=== PATIENT | female | born 1945 | race Caucasian/White ===

== ENCOUNTER → 2016-04-01 | Outpatient (CLI) | payer OTHER ==
--- NOTE | 2016-04-01 17:10 | MA ---
Specimen radiograph 04/01/2016 INDICATION: Left breast ductal carcinoma in situ. Lumpectomy. TECHNIQUE: Single specimen radiograph. COMPARISON: Tomosynthesis mammograms dated October 2015. FINDINGS: The specimen includes the biopsy clip, hookwire and needle and subtle asymmetry with puncta te microcalcification. IMPRESSION: Good specimen radiograph. Comment: Results were discussed with Dr. Alcon Nielsen at time of study completion. PLAN: Clinical follow up with Dr. Nielsen.
--- NOTE | 2016-04-01 20:09 | US ---
Left breast ultrasound-guided hookwire needle localization INDICATION: 70-year-old woman with history of left breast ductal carcinoma in situ. Patient scheduled for lumpectomy. Consent: The procedure, risks and benefits were discussed with the patient. She agreed to proceed. Al malu questions were addressed. PQRS Crosscutting Measure #226: Current tobacco use: No. COMPARISON: MRI dated February 2016 and outside reports from [facility] dated 03/04/2016. Technique: Preliminary ultrasound of the outer left breast reveals a subtle residual 4 mm stellate hy poechoic lesion at the 4 o'clock position 2 cm from the nipple. Subtle echogenic focus corresponding to the clip is present along the lateral margin of the lesion. A lateral to medial approach was selec teena, the skin was cleansed with chlorhexidine and sterilely draped. The skin and deep soft tissues we re anesthestized with 1% lidocaine. Utilizing real time ultrasound visualization, a 5 cm Brown need le was advanced along the margin of the clip and through the center of the lesion. The hookwire was u ltimately positioned such that the tip extending 5 mm beyond the lesion. The hookwire was deployed an d fixed in position with the plastic fixer device. Dressing was placed over the area by the mammograp hers. Patient tolerated the procedure well. IMPRESSION: Successful ultrasound-guided hookwire localization of residual lesion 4 o'clock position left breast. PLAN: Proceed with lumpectomy.
== END ==
LOC: FIMAGING 07:22
PROVIDERS: ATTEND Surgery
DX: D05.12 Intraductal carcinoma in situ of left breast (principal)

== ENCOUNTER 2016-08-12 01:18 | Inpatient (IN) | payer OTHER ==
[2016-08-12] MEDS ORDERED: NS 1,000 ML IV ONE (01:44)
[2016-08-12 01:51] LABS: % IMMATURE GRANULYOCYTES 0.2 % (0.0-1.1); ABSOLUTE IMMATURE GRANULOCYTES 0.02 10^3/uL (0.00-0.10); ADD DIFF? NO; ADD MORPH? NO; ADD SCAN? NO; ATYPICAL LYMPHOCYTE FLAG 0 (0-99); FRAGMENT RBC FLAG 0 (0-99); HEMATOCRIT 41.6 % (38.0-47.0); HEMOGLOBIN 14.3 g/dL (12.6-16.3); LEFT SHIFT FLG 0 (0-99); LIPEMIA HEMOLYSIS FLAG 90 (0-99); MEAN CELL HEMOGLOBIN CONCENTR. 34.4 g/dL (32.4-36.7); MEAN CELL VOLUME 90.2 fL (81.5-99.8); PLATELET CLUMPS FLAG 0 (0-99); PLATELET COUNT 324 10^3/uL (150-400); RED BLOOD CELL COUNT 4.61 10^6/uL (4.18-5.33); RED CELL DISTRIBUTION WIDTH 11.6 % (11.5-15.2)
[2016-08-12 01:58] LABS: ALANINE AMINOTRANSFERASE 37 IU/L (9-52); ALBUMIN 4.4 g/dL (3.5-5.0); ALKALINE PHOSPHATASE 54 IU/L (38-126); ANION GAP 8 mEq/L (8-16); ASPARTATE AMINOTRANSFERASE 25 IU/L (14-46); BILIRUBIN,TOTAL 1.3 mg/dL (0.1-1.4); BILIRUBIN-CONJUGATED 0.3 mg/dL (0.0-0.5); CALCIUM 8.9 mg/dL (8.5-10.4); CARBON DIOXIDE 25 mEq/l (22-31); CHLORIDE 103 mEq/L (97-110); CREATININE 0.7 mg/dL (0.6-1.0); GLOMERULAR FILTRATION RATE > 60; GLUCOSE 98 mg/dL (70-100); POTASSIUM 4.2 mEq/L (3.5-5.2); SODIUM 136 mEq/L (134-144); TOTAL PROTEIN 6.7 g/dL (6.3-8.2)
[2016-08-12] MEDS ORDERED: IOPAMIDOL (ISOVUE-300) 100 ML BTL ONE (02:07)
--- NOTE | 2016-08-12 02:09 | EDPHY ---
H & P Time Seen by Provider: 08/12/16 01:43 HPI/ROS: HPI Abdominal pain. 70-year-old female by private vehicle. She reports that she developed periumbilical area, mid abdominal pain which started earlier this morning. She reports that she walked to the 10 K run was today in town. She reports that she still had the pain during this time. She reports that after that she ate some glaucoma only in chips. She reports going to bed tonight however she still felt this pain and it seemed worse. She describes it as an aching and cramping sensation in the mid abdomen. She reports that she had a small bowel movement during the race. She has not had any vomiting. No bloody or melenic stool. No other complaints. ROS: Constitutional: No fever, no chills. No weakness. Eyes: No discharge. No changes in vision. ENT: No sore throat. No nasal congestion or rhinorrhea. Respiratory: No cough. No shortness of breath. Cardiac: No chest pain, no palpitations. Gastrointestinal: As above, no vomiting, no diarrhea. Genitourinary: No hematuria. No dysuria or increased frequency with urination. Musculoskeletal: No back pain. No neck pain. No myalgias or arthralgias. Skin: No rashes. Neurological: No headache. No focal weakness or altered sensation. Past medical history: Hysterectomy, breast cancer, chronic lower back pain, hypertension. Social history: Here by herself. No alcohol. Nonsmoker. Physical Exam: General Appearance: Alert, no distress. This patient is responding to questions appropriately and in full sentences. This patient appears well- hydrated and well-nourished. Eyes: Pupils equal and round no pallor or injection. No lid edema, erythema or injection. Respiratory: There are no retractions, lungs are clear to auscultation with good air movement bilaterally. Cardiovascular: Regular rate and rhythm. No murmur. Gastrointestinal: Abdomen is soft vague and mild mid abdominal tenderness on palpation, no masses, bowel sounds normal. No focal tenderness at McBurney's point. No Rawls sign. Neurological: Motor sensory function is grossly intact. Cranial nerves are normal. Gait is normal. Skin: Warm and dry, no rashes. Musculoskeletal: Neck is supple and nontender. Extremities are symmetrical. All joints range without pain or impingement. Psychiatric: No agitation. No depression. Database: EKG: Imaging: CT scan of the abdomen and pelvis with IV contrast: Significant for a cecal volvulus. Results were discussed with staff radiologist Dr. Alcon Garcia. Upright abdominal x-ray series: Some constipation noted. No obstructive process. No free air. Interpreted by me. Procedures: Emergency department course: An IV was placed. She was sent for an upright abdominal series x-ray to evaluate for possible constipation. Appropriate blood work sent. Pain medication was held secondary to possible etiology of constipation. She understood this and was in agreement. 2:10 a.m., patient re-evaluated. She appears reasonably comfortable but she is still complaining of mid abdominal pain. I discussed the results of her blood work as well as abdominal x-ray. She does not feel comfortable at this time. We will obtain a CT of her abdomen and pelvis with contrast to further evaluate. 2:50 a.m., results of CT scan discussed with the patient. She was given 25 mcg of IV fentanyl. I explained we would have general surgery consult regarding management of her volvulus. 3:00 a.m., discussed case with on-call general surgeon Dr. Babcock. He will review her CT scans and see this patient shortly. 2:55 a.m., Dr. Babcock is at the bedside. His plan is to admit the patient for operative management of a cecal volvulus. Patient given 1 g of IV Invanz in the emergency department. Patient admitted to Dr. Babcock in stable condition. Differential Diagnosis: The differential diagnosis on this patient includes but is not limited to constipation. Volvulus, cholecystitis, pancreatitis, appendicitis, other surgical etiology unlikely. This represents a partial list of diagnoses considered. These considerations are based on history, physical exam, past history, reassessment and diagnostic testing. Smoking Status: Never smoked Constitutional: Initial Vital Signs Temperature (C) 36.9 C 08/12/16 01:22 Heart Rate 78 08/12/16 01:22 Respiratory Rate 16 08/12/16 01:22 Blood Pressure 164/89 H 08/12/16 01:22 O2 Sat (%) 96 08/12/16 01:22 O2 Delivery Mode Room Air Allergies/Adverse Reactions: No Known Allergies Allergy (Unverified 08/12/16 01:27) Home Medications: Medication Instructions Recorded Anastrozole 08/12/16 CALCIUM 08/12/16 Coq-10 08/12/16 Fosamax 08/12/16 LaMICtal 08/12/16 Lexapro 08/12/16 Lisinopril 08/12/16 Melatonin 08/12/16 [place] 3 08/12/16 Probiotic 08/12/16 SIMVASTATIN 08/12/16 Saccharomyces Boulardii 08/12/16 Temazepam 08/12/16 Vitamin D3 08/12/16 Wellbutrin 08/12/16 Xanax 08/12/16 Medical Decision Making - Data Points Laboratory Results: Laboratory Results 08/12/16 01:40 08/12/16 01:40 08/12/16 08/12/16 01:40 01:40 WBC 10.94 10^3/uL H 10^3/uL (3.80-9.50) RBC 4.61 10^6/uL 10^6/uL (4.18-5.33) Hgb 14.3 g/dL g/dL (12.6-16.3) Hct 41.6 % % (38.0-47.0) MCV 90.2 fL fL (81.5-99.8) MCH 31.0 pg pg (27.9-34.1) MCHC 34.4 g/dL g/dL (32.4-36.7) RDW 11.6 % % (11.5-15.2) Plt Count 324 10^3/uL 10^3/uL (150-400) MPV 10.0 fL fL (8.7-11.7) Neut % (Auto) 66.2 % % (39.3-74.2) Lymph % (Auto) 26.8 % % (15.0-45.0) [place] % (Auto) 6.2 % % (4.5-13.0) Eos % (Auto) 0.3 % L % (0.6-7.6) Baso % (Auto) 0.3 % % (0.3-1.7) Nucleat RBC Rel Count 0.0 % % (0.0-0.2) Absolute Neuts (auto) 7.25 10^3/uL H 10^3/uL (1.70-6.50) Absolute Lymphs (auto) 2.93 10^3/uL 10^3/uL (1.00-3.00) Absolute Monos (auto) 0.68 10^3/uL 10^3/uL (0.30-0.80) Absolute Eos (auto) 0.03 10^3/uL 10^3/uL (0.03-0.40) Absolute Basos (auto) 0.03 10^3/uL 10^3/uL (0.02-0.10) Absolute Nucleated RBC 0.00 10^3/uL 10^3/uL (0-0.01) Immature Gran % 0.2 % % (0.0-1.1) Immature Gran # 0.02 10^3/uL 10^3/uL (0.00-0.10) Sodium 136 mEq/L mEq/L (134-144) Potassium 4.2 mEq/L mEq/L (3.5-5.2) Chloride 103 mEq/L mEq/L (97-110) Carbon Dioxide 25 mEq/l mEq/l (22-31) Anion Gap 8 mEq/L mEq/L (8-16) BUN 12 mg/dL mg/dL (7-23) Creatinine 0.7 mg/dL mg/dL (0.6-1.0) Estimated GFR > 60 Glucose 98 mg/dL mg/dL (70-100) Calcium 8.9 mg/dL mg/dL (8.5-10.4) Total Bilirubin 1.3 mg/dL mg/dL (0.1-1.4) Conjugated Bilirubin 0.3 mg/dL mg/dL (0.0-0.5) Unconjugated Bilirubin 1.0 mg/dL mg/dL (0.0-1.1) AST 25 IU/L IU/L (14-46) ALT 37 IU/L IU/L (9-52) Alkaline Phosphatase 54 IU/L IU/L (38-126) Total Protein 6.7 g/dL g/dL (6.3-8.2) Albumin 4.4 g/dL g/dL (3.5-5.0) Lipase 61.0 IU/L IU/L (23-300) Medications Given: Discontinued Medications Fentanyl (Sublimaze) 25 mcg IVP EDNOW ONE Stop: 08/12/16 03:19 Last Admin: 08/12/16 03:38 Dose: 25 mcg Sodium Chloride (Ns) 1,000 mls @ 0 mls/hr IV ONCE ONE PRN Reason: Wide Open Stop: 08/12/16 01:45 Last Admin: 08/12/16 01:47 Dose: 1,000 mls Departure - Departure Disposition: [facility] Inpatient Acute Clinical Impression: Abdominal pain, Cecal volvulus Referrals: Bonnie Amaya MD [Primary Care Provider] - As per Instructions
[2016-08-12] MEDS ORDERED: fentaNYL 100 MCG/2 ML INJ ONE ×2 (02:53→05:22)
[2016-08-12] MEDS ORDERED: ACETAMINOPHEN 500 MG TAB ONE (03:02)
[2016-08-12] MEDS ORDERED: fentaNYL 100 MCG/2 ML INJ IVP ONE ×2 (03:18→04:10)
[2016-08-12] MEDS ORDERED: ERTAPENEM 1 GM in NS 100 ML IV ONE (03:55)
--- NOTE | 2016-08-12 04:48 | PDGENHP ---
History and Physical - Chief Complaint Abdominal pain - History of Present Illness Mariola Ledesma this 70 yo woman who presents to the emergency room with a 24 hour history of increasing abdominal pain. The patient began having abdominal pain while walking 10K after [place] yesterday. Although she was able to have a bowel movement her pain continued to increase to abort where she was uncomfortable enough to come into the emergency room. She denies nausea or vomiting she has had no prior symptoms. Previous abdominal surgery includes vaginal hysterectomy. She has had a high school librarian for a history of diverticular disease who resides in [place], [place]. Past Surgical history includes lumpectomy, vaginal hysterectomy Past Medical history includes reflux, diverticulosis, hypertension, hyperlipidemia, breast cancer Family history: Noncontributory Anastrozole 08/12/16 [Last Taken Unknown] CALCIUM 08/12/16 [Last Taken Unknown] Coq-10 08/12/16 [Last Taken Unknown] Fosamax 08/12/16 [Last Taken Unknown] LaMICtal 08/12/16 [Last Taken Unknown] Lexapro 08/12/16 [Last Taken Unknown] Lisinopril 08/12/16 [Last Taken Unknown] Melatonin 08/12/16 [Last Taken Unknown] [place] 3 08/12/16 [Last Taken Unknown] Probiotic 08/12/16 [Last Taken Unknown] SIMVASTATIN 08/12/16 [Last Taken Unknown] Saccharomyces Boulardii 08/12/16 [Last Taken Unknown] Temazepam 08/12/16 [Last Taken Unknown] Vitamin D3 08/12/16 [Last Taken Unknown] Wellbutrin 08/12/16 [Last Taken Unknown] Xanax 08/12/16 [Last Taken Unknown] No known medical allergies Denies smoking or illicit drug use Review of systems significant for her abdominal pain, early satiety and reflux All others are reviewed and are negative Vital Signs Temp Pulse Resp BP Pulse Ox 36.8 C 75 16 151/87 H 96 08/12/16 03:17 08/12/16 03:17 08/12/16 03:17 08/12/16 03:17 08/12/16 03:17 Alert oriented x3 No acute distress Anicteric sclera,EOMI Trachea midline did no JVD full range of motion of neck Regular rate and rhythm Clear to auscultation Abdomen is soft distended tender left upper quadrant no rebound no scars Extremities without edema 2+ over 2+ femoral dorsalis pedis pulses Skin normal turgor and tone No cervical or supraclavicular adenopathy Normal affect nonfocal neurologic exam Laboratory Results 08/12/16 01:40 08/12/16 01:40 CT scan personally reviewed on Pacs and with the patient. Consistent with cecal volvulus with cecum measuring 11 cm in the left upper quadrant just below the diaphragm Impression: Cecal volvulus acute Plan: Open right colon resection. The risks benefits and alternatives surgery were clearly outlined with the patient. The risks include but are not limited to bleeding, infection, injury to surrounding structures in requirement for additional intervention. Benefits include prevention of perforation obstruction and possible mortality from these complications Patient verbalized understanding prior to deciding written consent. Invanz was ordered as a prophylactic antibiotic prior to colectomy Anticipate 40-72 hour postoperative stay. History Information - Allergies/Home Medication List Allergies/Adverse Reactions: No Known Allergies Allergy (Unverified 08/12/16 01:27) Home Medications: Anastrozole 08/12/16 [Last Taken Unknown] CALCIUM 08/12/16 [Last Taken Unknown] Coq-10 08/12/16 [Last Taken Unknown] Fosamax 08/12/16 [Last Taken Unknown] LaMICtal 08/12/16 [Last Taken Unknown] Lexapro 08/12/16 [Last Taken Unknown] Lisinopril 08/12/16 [Last Taken Unknown] Melatonin 08/12/16 [Last Taken Unknown] [place] 3 08/12/16 [Last Taken Unknown] Probiotic 08/12/16 [Last Taken Unknown] SIMVASTATIN 08/12/16 [Last Taken Unknown] Saccharomyces Boulardii 08/12/16 [Last Taken Unknown] Temazepam 08/12/16 [Last Taken Unknown] Vitamin D3 08/12/16 [Last Taken Unknown] Wellbutrin 08/12/16 [Last Taken Unknown] Xanax 08/12/16 [Last Taken Unknown] I have personally reviewed and updated: family history - Past Medical History chronic insomnia, GERD, hypertension, hyperlipidemia Additional medical history: breast cancer - Surgical History Reports: cancer surgery - Social History Smoking Status: Never smoked Physical Exam Temp Pulse Resp BP Pulse Ox 36.8 C 75 16 151/87 H 96 08/12/16 03:17 08/12/16 03:17 08/12/16 03:17 08/12/16 03:17 08/12/16 03:17 Lab Data & Imaging Review 08/12/16 01:40 08/12/16 01:40 WBC 10.94 10^3/uL (3.80-9.50) H 08/12/16 01:40 RBC 4.61 10^6/uL (4.18-5.33) 08/12/16 01:40 Hgb 14.3 g/dL (12.6-16.3) 08/12/16 01:40 Hct 41.6 % (38.0-47.0) 08/12/16 01:40 MCV 90.2 fL (81.5-99.8) 08/12/16 01:40 MCH 31.0 pg (27.9-34.1) 08/12/16 01:40 MCHC 34.4 g/dL (32.4-36.7) 08/12/16 01:40 RDW 11.6 % (11.5-15.2) 08/12/16 01:40 Plt Count 324 10^3/uL (150-400) 08/12/16 01:40 MPV 10.0 fL (8.7-11.7) 08/12/16 01:40 Neut % (Auto) 66.2 % (39.3-74.2) 08/12/16 01:40 Lymph % (Auto) 26.8 % (15.0-45.0) 08/12/16 01:40 [place] % (Auto) 6.2 % (4.5-13.0) 08/12/16 01:40 Eos % (Auto) 0.3 % (0.6-7.6) L 08/12/16 01:40 Baso % (Auto) 0.3 % (0.3-1.7) 08/12/16 01:40 Nucleat RBC Rel Count 0.0 % (0.0-0.2) 08/12/16 01:40 Absolute Neuts (auto) 7.25 10^3/uL (1.70-6.50) H 08/12/16 01:40 Absolute Lymphs (auto) 2.93 10^3/uL (1.00-3.00) 08/12/16 01:40 Absolute Monos (auto) 0.68 10^3/uL (0.30-0.80) 08/12/16 01:40 Absolute Eos (auto) 0.03 10^3/uL (0.03-0.40) 08/12/16 01:40 Absolute Basos (auto) 0.03 10^3/uL (0.02-0.10) 08/12/16 01:40 Absolute Nucleated RBC 0.00 10^3/uL (0-0.01) 08/12/16 01:40 Immature Gran % 0.2 % (0.0-1.1) 08/12/16 01:40 Immature Gran # 0.02 10^3/uL (0.00-0.10) 08/12/16 01:40 Sodium 136 mEq/L (134-144) 08/12/16 01:40 Potassium 4.2 mEq/L (3.5-5.2) 08/12/16 01:40 Chloride 103 mEq/L (97-110) 08/12/16 01:40 Carbon Dioxide 25 mEq/l (22-31) 08/12/16 01:40 Anion Gap 8 mEq/L (8-16) 08/12/16 01:40 BUN 12 mg/dL (7-23) 08/12/16 01:40 Creatinine 0.7 mg/dL (0.6-1.0) 08/12/16 01:40 Estimated GFR > 60 08/12/16 01:40 Glucose 98 mg/dL (70-100) 08/12/16 01:40 Calcium 8.9 mg/dL (8.5-10.4) 08/12/16 01:40 Total Bilirubin 1.3 mg/dL (0.1-1.4) 08/12/16 01:40 Conjugated Bilirubin 0.3 mg/dL (0.0-0.5) 08/12/16 01:40 Unconjugated Bilirubin 1.0 mg/dL (0.0-1.1) 08/12/16 01:40 AST 25 IU/L (14-46) 08/12/16 01:40 ALT 37 IU/L (9-52) 08/12/16 01:40 Alkaline Phosphatase 54 IU/L (38-126) 08/12/16 01:40 Total Protein 6.7 g/dL (6.3-8.2) 08/12/16 01:40 Albumin 4.4 g/dL (3.5-5.0) 08/12/16 01:40 Lipase 61.0 IU/L (23-300) 08/12/16 01:40 Assessment & Plan Assessment: Abdominal pain (Acute) Cecal volvulus (Acute)
[2016-08-12] MEDS ORDERED: MIDAZOLAM 2 MG/2 ML VIAL ONE (05:08)
[2016-08-12] MEDS ORDERED: PROPOFOL/EMULSION 500 MG/50 ML BOTTLE IV ONE (05:22)
[2016-08-12] MEDS ORDERED: LIDOCAINE 2% 100 MG/5 ML SYR ONE (05:31)
[2016-08-12] MEDS ORDERED: ROCURONIUM 50 MG/5 ML VIAL ONE (05:31)
[2016-08-12] MEDS ORDERED: ONDANSETRON 4 MG/2 ML VIAL ONE (05:31)
[2016-08-12] MEDS ORDERED: DEXAMETHASONE 4 MG/ML VIAL ONE (05:31)
[2016-08-12] MEDS ORDERED: PHENYLEPHRINE HCL 100 MCG/ML SYR ONE (05:42)
[2016-08-12] MEDS ORDERED: BUPIVACAINE/EPI 0.25% 30 ML SDV ONE (05:46)
[2016-08-12] MEDS ORDERED: morphINE PF 5 MG/10 ML INJ ONE (05:47)
[2016-08-12] MEDS ORDERED: BUPIVACAINE 0.5% 30 ML SDV ONE (05:55)
[2016-08-12] MEDS ORDERED: LIDOCAINE HCL 160 MG/4 ML LTA KIT TP ONE (06:09)
[2016-08-12] MEDS ORDERED: METOCLOPRAMIDE 10 MG/2 ML VIAL IVP PRN (06:11)
[2016-08-12] MEDS ORDERED: NALOXONE HCL 0.4 MG/ML INJ IVP PRN (06:11)
[2016-08-12] MEDS ORDERED: HYDROmorph 10MCG/ML&BUP 0.0625% in 100ML NS EP SCH (06:11)
[2016-08-12] MEDS ORDERED: diphenhydrAMINE 25 MG CAP PO PRN (06:11)
[2016-08-12] MEDS ORDERED: ONDANSETRON 4 MG/2 ML VIAL IVP PRN (06:11)
[2016-08-12] MEDS ORDERED: NARCOTIC DRIP BAG-TOTAL ALL TYPES EP PRN (06:11)
[2016-08-12] MEDS ORDERED: epHEDrine SULFATE 10 MG/ML SYR ONE ×2 (06:13)
[2016-08-12] MEDS ORDERED: SUGAMMADEX SODIUM 200 MG/2 ML VIAL IVP ONE (06:28)
--- NOTE | 2016-08-12 06:45 | POSTOPPROG ---
Post Op Note Date of Operation: 08/12/16 Surgeon: Abad Babcock Anesthesiologist: Dr Johnson Anesthesia: GET(General Endotracheal) Pre-op Diagnosis: cecal volvulus Post-op Diagnosis: same Procedure: right colectomy Findings: malrotation/volvulus Inf/Abcess present in the surg proc area at time of surgery?: No EBL: Minimal Total fluids administered: 1L Complications: none Specimen(s): right colon
--- NOTE | 2016-08-12 09:17 | GOP ---
[f rep st] OPERATIVE REPORT DATE OF OPERATION: SURGEON: Abad Babcock MD CLINICAL DOCUMENTATION IMPROVEMENT SPECIALIST: None. ANESTHESIA: General endotracheal anesthesia and epidural anesthesia used. ANESTHESIOLOGIST: Dr. Nahun Johnson. PREOPERATIVE DIAGNOSIS: Cecal volvulus. POSTOPERATIVE DIAGNOSIS: Cecal volvulus with partial malrotation. PROCEDURE PERFORMED: Right hemicolectomy. FINDINGS: SPECIMENS: Right colon to permanent pathology, noted to be dilated. INDICATIONS: This is a 70-year-old woman who presents with cecal volvulus with acute abdominal pain , distention, cecum at approximately 11-12 cm. DESCRIPTION OF PROCEDURE: The patient was brought in the operating room. After induction of endotr acheal anesthesia in a supine position, her abdomen was prepped with chlorhexidine and draped steril onofre. Time-out procedure was performed according to institutional standards. Local anesthetic was i nfused in the skin and subcutaneous tissue. Midline incision was made, deepened with electrocautery . Abdomen was entered sharply. A large cecal volvulus was noted in the left upper quadrant, and th is was reduced through the abdomen. There were some chronic bands or adhesions that were noted from the anterior abdominal wall to the midportion of the small bowel. These were divided with LigaSure energy. The cecal volvulus was unrotated, and the small bowel was run from the ligament of Treitz to the ileocecal valve. Due to the redundancy of the colon, it was decided to perform a formal righ t colectomy, which was done by dividing the colon distally at the level of the middle colic vessels and proximally the ilium was divided at an appropriate spot, just proximal to the ileocecal valve. The mesentery was controlled with bipolar energy. A [id number] functional end-to-end anastomosis was made with a TALIB 75 stapler, and the enterotomy used in creating the anastomosis was closed with a TA 60 stapler. The mesentery was closed using 3-0 Vicryl, and all hemostasis was assured. The aaliyah wel was placed in an appropriate anatomic position before closing the abdomen using 0 PDS for the fa scia, 4-0 Monocryl for the skin. Dermabond was applied. The patient was awakened, extubated, taken to recovery room in stable condition. No immediate complications. FLUID GIVEN: 1 L of crystalloid. URINE OUTPUT: 75 mL. /[id number]/MODL
[2016-08-12] MEDS: D5W LR 1,000 ML IV SCH ×2 (09:47→23:47)
[2016-08-12] MEDS ORDERED: ALPRAZolam 0.5 MG TAB PO PRN (11:09)
[2016-08-12] MEDS ORDERED: NON-FORMULARY NEW DRUG (Temazepam [Restoril] 30 MG) PO PRN (11:09)
[2016-08-12] MEDS ORDERED: MELATONIN 3 MG TAB PO PRN (11:09)
[2016-08-12] MEDS ORDERED: TEMAZEPAM 15 MG CAP PO PRN (11:35)
[2016-08-12] MEDS: REGARDING ANTICOAG MISC SCH (12:35)
[2016-08-12] MEDS: DC NARCS MISC SCH (12:35)
[2016-08-12] MEDS ORDERED: NON-FORMULARY NEW DRUG (Simvastatin [Zocor] 20 MG) PO SCH (21:00)
[2016-08-12] MEDS: LISINOPRIL 10 MG TAB PO SCH (21:04)
[2016-08-12] MEDS: ENOXAPARIN 40 MG/0.4 ML SYR SC SCH (21:05)
[2016-08-12] MEDS: ESCITALOPRAM OXALATE 10 MG TAB PO SCH (21:05)
[2016-08-12] MEDS: ATORVASTATIN CALCIUM 10 MG TAB PO SCH (21:05)
[2016-08-12] MEDS: KETOROLAC 15 MG/1 ML SDV IVP SCH (23:47)
[2016-08-13] MEDS: KETOROLAC 15 MG/1 ML SDV IVP SCH ×4 (05:05→22:57)
[2016-08-13 05:22] LABS: HEMATOCRIT 36.3 % (38.0-47.0); HEMOGLOBIN 12.2 g/dL (12.6-16.3)
[2016-08-13 06:23] LABS: ANION GAP 4 mEq/L (8-16); CARBON DIOXIDE 26 mEq/l (22-31); CHLORIDE 102 mEq/L (97-110); CREATININE 0.6 mg/dL (0.6-1.0); GLOMERULAR FILTRATION RATE > 60; GLUCOSE 99 mg/dL (70-100); POTASSIUM 3.7 mEq/L (3.5-5.2); SODIUM 132 mEq/L (134-144)
[2016-08-13] MEDS: DC NARCS MISC SCH (08:01)
[2016-08-13] MEDS: REGARDING ANTICOAG MISC SCH (08:01)
[2016-08-13] MEDS: ANASTROZOLE 1 MG TAB PO SCH (08:02)
[2016-08-13] MEDS: lamoTRIgine 100 MG TAB PO SCH (08:02)
[2016-08-13] MEDS: buPROPion XL 150 MG TAB PO SCH (08:02)
--- NOTE | 2016-08-13 08:16 | SOAPPROG ---
SOAP Progress Note Assessment/Plan: Assessment: POD 1 s/p Right hemicolectomy secondary to cecal volvulus with partial malrotation. Patient reports feeling better since epidural was stopped. Epidural still in place and will discuss with anesthesia to remove today. Pain controlled with Toradol. Patient with increased appetite and requesting diet advancement. Denies flatus or BM. afeb, VSS, labs reviewed. A&O x3, abd soft, mildly distended, nontender. incision clean, dry, intact. Plan: ambulate today, d/c epidural, advance diet. Plan: 08/13/16 08:12 08/13/16 08:18 Objective: Vital Signs Temp Pulse Resp BP Pulse Ox 37.2 C 75 16 113/66 93 08/13/16 07:25 08/13/16 07:25 08/13/16 07:25 08/13/16 07:25 08/13/16 07:25 Laboratory Results 08/13/16 05:05 08/13/16 05:05 08/12/16 08/13/16 08/14/16 05:59 05:59 05:59 Intake Total 1000 3225 Output Total 1580 400 Balance 1000 1645 -400 ICD10 Worksheet Patient Problems: Problems Problem Status Onset Abdominal pain Acute Cecal volvulus Acute
--- NOTE | 2016-08-13 15:48 | SOAPPROG ---
SOAP Progress Note Assessment/Plan: Assessment:POD #1-CTE making her "woozy", better with it off. site clean and dry Plan:D/C epidural cath out, tip intact 08/13/16 15:47 P Objective: Vital Signs Temp Pulse Resp BP Pulse Ox 37.6 C 83 16 119/63 93 08/13/16 15:35 08/13/16 15:35 08/13/16 15:35 08/13/16 15:35 08/13/16 15:35 Laboratory Results 08/13/16 05:05 08/13/16 05:05 08/12/16 08/13/16 08/14/16 05:59 05:59 05:59 Intake Total 1000 3225 Output Total 1580 400 Balance 1000 1645 -400 ICD10 Worksheet Patient Problems: Problems Problem Status Onset Abdominal pain Acute Cecal volvulus Acute
[2016-08-13] MEDS ORDERED: ACETAMINOPHEN 325 MG TAB PO PRN (16:34)
[2016-08-13] MEDS ORDERED: oxyCODONE IR 5 MG TAB PO PRN (16:35)
[2016-08-13] MEDS: ESCITALOPRAM OXALATE 10 MG TAB PO SCH (20:34)
[2016-08-13] MEDS: ATORVASTATIN CALCIUM 10 MG TAB PO SCH (20:34)
[2016-08-13] MEDS: LISINOPRIL 10 MG TAB PO SCH (20:34)
[2016-08-13] MEDS: ENOXAPARIN 40 MG/0.4 ML SYR SC SCH (20:34)
[2016-08-14] MEDS: KETOROLAC 15 MG/1 ML SDV IVP SCH ×2 (06:13→11:22)
[2016-08-14] MEDS: DC NARCS MISC SCH (07:07)
[2016-08-14] MEDS: REGARDING ANTICOAG MISC SCH (07:08)
[2016-08-14 08:32] VITALS: PULSE 77
[2016-08-14] MEDS: buPROPion XL 150 MG TAB PO SCH (09:10)
[2016-08-14] MEDS: lamoTRIgine 100 MG TAB PO SCH (09:10)
[2016-08-14] MEDS: ANASTROZOLE 1 MG TAB PO SCH (09:10)
[2016-08-14 12:11] VITALS: BP 122/68; RESP 18; TEMP 98.1; O2SAT 90
== END 2016-08-14 14:01 | disposition home or self-care (01) | DRG 331 ==
LOC: F3E 08:11
PROVIDERS: ADMIT Surgery; ATTEND Surgery
PROC: 0DTF0ZZ Resection of Right Large Intestine, Open Approach (ICD-10-PCS; principal; 2016-08-12 04:30)
DX: K56.2 Volvulus (principal); I10 Essential (primary) hypertension; G89.29 Other chronic pain; Z85.3 Personal history of malignant neoplasm of breast
CPT/HCPCS: 96365; J1100; J1170; J1335; J1650; J1885; J2001; J2250; J2274; J2370; J2405; J2704; J3010; Q9967

== ENCOUNTER → 2016-10-31 | Outpatient (CLI) | payer OTHER | LOC: FIMAGING 12:29 | PROVIDERS: ATTEND Family Medicine | DX: Z12.31 Encounter for screening mammogram for malignant neoplasm of breast (principal) | CPT/HCPCS: G0202 ==

== ENCOUNTER → 2017-08-27 | Outpatient (CLI) | payer OTHER | LOC: FIMAGING 13:25 | PROVIDERS: ATTEND Internal Medicine Hematology & Oncology | DX: C50.912 Malignant neoplasm of unspecified site of left female breast (principal); Z80.3 Family history of malignant neoplasm of breast ==

== ENCOUNTER → 2017-12-03 | Outpatient (CLI) | payer OTHER | LOC: FIMAGING 10:52 | PROVIDERS: ATTEND Family Medicine | DX: Z12.31 Encounter for screening mammogram for malignant neoplasm of breast (principal); Z85.3 Personal history of malignant neoplasm of breast; Z80.3 Family history of malignant neoplasm of breast; Z13.820 Encounter for screening for osteoporosis; M85.88 Other specified disorders of bone density and structure, other site; Z78.0 Asymptomatic menopausal state ==